=== PATIENT | female | born 1995 | race American Indian/Alaskan Native ===

== ENCOUNTER 2017-12-01 13:14 | Emergency (ER) | payer OTHER ==
[2017-12-01 13:14] VITALS: BMI 26.2
[2017-12-01 13:43] VITALS: BP 109/75; PULSE 74; RESP 17; TEMP 98; O2SAT 98
== END 2017-12-01 13:47 | disposition left against medical advice (07) ==
LOC: ED 13:14
DX: Z02.89 Encounter for other administrative examinations (principal); M79.606 Pain in leg, unspecified

== ENCOUNTER 2017-12-24 17:37 | Emergency (ER) | payer OTHER ==
[2017-12-24 17:37] VITALS: BMI 26.2
--- NOTE | 2017-12-24 18:45 | ED PDOC ---
Arrival/HPI - General Chief Complaint: Lower Extremity Problem/Injury Time Seen by Provider: 12/24/17 17:44 Historian: Patient - History of Present Illness Narrative History of Present Illness (Text): 12/24/17 18:42 22-year-old female presents today with chronic bilateral leg numbness and pain. Patient states she has a history of chronic back pain and chronic bilateral leg pain. She denies bladder or bowel incontinence. Denies saddle paresthesias. Patient states she is being followed by a neurologist. Patient states she's had MRI of the head lumbar and thoracic spines which were negative. Patient states she was supposed to have a nerve test for which she has not done yet. Patient presents today because her chronic pain and numbness in the lower extremities has been worsening over the past month. Patient denies abdominal pain. No nausea or vomiting. Patient states she is able to ambulate. Patient states that it feels like the legs are tight. She denies dizziness or weakness. Denies neck pain. Denies headache. No other complaints Past Medical History - Provider Review Nursing Documentation Reviewed: Yes - Travel History Have you recently traveled outside [place] w/in the past 3 mons?: No - Infectious Disease Hx of Infectious Diseases: None - Tetanus Immunization Tetanus Immunization: Unknown - Past Medical History Past Medical History: No Previous - Psychiatric Hx Substance Use: No - Past Surgical History Past Surgical History: No Previous - Suicidal Assessment Feels Threatened In Home Enviroment: No Family/Social History - Physician Review Nursing Documentation Reviewed: Yes Family/Social History: Unknown Family HX Smoking Status: Never Smoked Hx Alcohol Use: No Hx Substance Use: No Allergies/Home Meds Allergies/Adverse Reactions: Allergies No Known Allergies Allergy (Verified 12/24/17 18:16) Home Medications: Home Meds Medication Instructions Recorded Confirmed Gabapentin [Neurontin] 100 mg PO BID 12/24/17 12/24/17 Review of Systems - Review of Systems Constitutional: absent: Fatigue, Fevers Respiratory: absent: SOB, Cough Cardiovascular: absent: Chest Pain, Palpitations Gastrointestinal: absent: Abdominal Pain, Nausea, Vomiting Genitourinary Female: absent: Dysuria, Frequency, Hematuria Musculoskeletal: Arthralgias, Back Pain. absent: Neck Pain Skin: absent: Rash, Pruritis Neurological: absent: Headache, Dizziness Psychiatric: absent: Anxiety, Depression, Suicidal Ideation Physical Exam Vital Signs Reviewed: Yes Vital Signs Temp Pulse Resp BP Pulse Ox 12/24/17 19:34 74 18 114/57 L 100 12/24/17 17:55 98.2 F 76 18 104/56 L 99 Temperature: Afebrile Blood Pressure: Normal Pulse: Regular Respiratory Rate: Normal Appearance: Positive for: Well-Appearing, Non-Toxic, Comfortable Pain Distress: None Mental Status: Positive for: Alert and Oriented X 3 - Systems Exam Head: Present: Atraumatic Mouth: Present: Moist Mucous Membranes Neck: Present: Normal Range of Motion Respiratory/Chest: Present: Clear to Auscultation, Good Air Exchange. No: Respiratory Distress, Accessory Muscle Use Cardiovascular: Present: Regular Rate and Rhythm, Normal S1, S2. No: Murmurs Abdomen: No: Tenderness, Distention, Rebound, Guarding Back: Present: Normal Inspection. No: CVA Tenderness, Midline Tenderness, Paraspinal Tenderness Upper Extremity: Present: Normal Inspection, Normal ROM Lower Extremity: Present: Normal Inspection, CALF TENDERNESS, NORMAL PULSES, Normal ROM, Tenderness, Neurovascularly Intact, Capillary Refill < 2 s. No: Swelling, Erythema, Deformity Neurological: Present: GCS=15, Speech Normal Skin: Present: Warm, Dry, Normal Color. No: Rashes Psychiatric: Present: Alert, Oriented x 3 Medical Decision Making ED Course and Treatment: 12/24/17 18:46 22yr old female with chronic lower leg pain and numbness. cbc wnl cmp wn; venous duplex; wnl 12/24/17 21:06 pt is non toxic well appearing; no distress. stable vitals. ambulating around the ER in no distress. pt with chronic paresthesias in the bilateral lower extremities being followed by a neurologist. Patient has had MRI of the head lumbar and thoracic spine. I have advised the patient that she must follow-up with a neurologist as soon as possible. I revised the patient to return immediately if she develops any bladder or bowel incontinence or if she develops Weakness in the lower extremities. Patient verbalizes understanding of discharge instructions and need for immediate followup. all aspects of this case were discussed the attending of record. Impression: Paresthesias of lower extremities follow up with the neurologist within the next 2 days return immediately if symptoms worsen,persist or if new symptoms develop. - Lab Interpretations Lab Results: 12/24/17 19:40 12/24/17 19:40 Lab Results 12/24/17 19:40: WBC 6.5 D, RBC 4.00, Hgb 11.9 L, Hct 35.3 L, MCV 88.3, MCH 29.8 , MCHC 33.7, RDW 14.1, Plt Count 188, MPV 10.6, Gran % 65.6, Lymph % (Auto) 28.3 , [place] % (Auto) 4.0, Eos % (Auto) 1.9, Baso % (Auto) 0.2, Gran # 4.25, Lymph # ( Auto) 1.8, [place] # (Auto) 0.3, Eos # (Auto) 0.1, Baso # (Auto) 0.01 12/24/17 19:40: Sodium 141, Potassium 3.9, Chloride 102, Carbon Dioxide 27, Anion Gap 15, BUN 8, Creatinine 0.8, Est GFR ( Amer) > 60, Est GFR (Non- Af Amer) > 60, Random Glucose 79, Calcium 9.9, Total Bilirubin 0.4, AST 18, ALT 28, Alkaline Phosphatase 71, Total Protein 7.5, Albumin 4.0, Globulin 3.5, Albumin/Globulin Ratio 1.1 - RAD Interpretation Radiology Orders: 12/24/17 18:31 DUPLEX LOWER EXTRM VEIN BILAT [US] Stat - Medication Orders Current Medication Orders: Discontinued Medications Ketorolac Tromethamine (Toradol) 30 mg IVP STAT STA Stop: 12/24/17 20:08 Last Admin: 12/24/17 20:30 Dose: 30 mg MAR Pain Assessment Document 12/24/17 20:30 AB (Rec: 12/24/17 20:31 [id number] Pain Reassessment Is this a pain reassessment? Yes Sleep Is patient sleeping during reassessment? No Presence of Pain Presence of Pain Yes Pain Scale Used Pain Scale Used Numeric Location Left, Right or Bilateral Bilateral Upper or Lower Lower Pain Location Body Site Leg Description Description Constant Intensity of Pain at present 3 Pain Behavior Guarding Aggravating Factors ADL's Alleviating Factors/Management Heat Techniques Alleviating Factors Medication IVP Administration Document 12/24/17 20:30 AB (Rec: 12/24/17 20:31 [id number] Charges for Administration # of IVP Administrations 1 Disposition/Present on Arrival - Present on Arrival Any Indicators Present on Arrival: No History of DVT/PE: No History of Uncontrolled Diabetes: No Urinary Catheter: No History of Decub. Ulcer: No History Surgical Site Infection Following: None - Disposition Have Diagnosis and Disposition been Completed?: Yes Diagnosis: Bilateral leg paresthesia Disposition: HOME/ ROUTINE Disposition Time: 21:10 Patient Plan: Discharge Condition: GOOD Additional Instructions: follow up with the neurologist within the next 2 days return immediately if symptoms worsen,persist or if new symptoms develop. Referrals: Minor Juarez MD [Staff Provider] - Follow up with primary Neil Issa MD [Staff Provider] - Follow up with primary Forms: [facility] (Ukrainian), WORK NOTE
[2017-12-24 19:59] LABS: BASO # 0.01 K/mm3 (0.0-2.0); BASO % 0.2 % (0.0-3.0); EOS # 0.1 (0.0-0.7); EOS % 1.9 % (1.5-5.0); GRAN # 4.25 (1.4-6.5); GRAN % 65.6 % (50.0-68.0); HEMOGLOBIN 11.9 g/dL (12.0-16.0); LYMPH # 1.8 (1.2-3.4); LYMPH % 28.3 % (22.0-35.0); MEAN CELL VOLUME 88.3 fl (80.0-105.0); MEAN CORPUSCULAR HEMOGLOBIN 29.8 pg (25.0-35.0); MEAN CORPUSCULAR HGB CONC 33.7 g/dl (31.0-37.0); MEAN PLATELET VOLUME 10.6 fl (7.0-11.0); MONO # 0.3 (0.1-0.6); RED CELL DISTRIBUTION WIDTH 14.1 % (11.5-14.5); WHITE BLOOD COUNT 6.5 10^3/ul (4.5-11.0)
[2017-12-24 20:09] LABS: ALB/GLOB RATIO 1.1 (1.1-1.8); ALT/SGPT 28 U/L (7-56); AST/SGOT 18 U/L (14-36); BLOOD UREA NITROGEN 8 mg/dL (7-21); CALCIUM 9.9 mg/dL (8.4-10.5); GFR AFRICAN-AMERICAN > 60; GFR NON-AFRICAN AMERICAN > 60
[2017-12-24 21:22] VITALS: BP 110/70; PULSE 80; RESP 16; TEMP 97.8; O2SAT 99
--- NOTE | 2017-12-25 09:21 | US ---
HISTORY: Leg pain and swelling. Evaluate for DVT PHYSICIAN(S): Maurizio Burgess MD. TECHNIQUE: Duplex sonography and color-flow Doppler with graded compression were used to evaluate the deep venous systems of both lower extremities. FINDINGS: The visualized deep venous systems of both lower extremities are sonographically normal and compressible. Normal wave forms and augmentation are seen. There is no sonographic evidence for deep venous thrombosis in the visualized segments of both lower extremities. IMPRESSION: No sonographic evidence for deep venous thrombosis in the visualized segments of both lower extremities.
== END 2017-12-24 21:22 | disposition home or self-care (01) ==
LOC: ED 17:37
DX: R20.2 Paresthesia of skin (principal)
CPT/HCPCS: 80053; 85025; 93970; 96374; 99284; J1885